=== PATIENT | male | born 1945 | race Caucasian/White ===

== ENCOUNTER 2021-08-13 13:59 | Outpatient (CLI) | payer MEDICARE, OTHER ==
[2021-08-13 15:14] VITALS: BP 130/78
--- NOTE | 2021-08-13 15:14 | SLEEP CARE CONSULTATION ---
Information from patient questionnaire entered by Lucy Reese MA. I have reviewed and concur with the information entered by Lucy Reese MA. This document represents the service I personally performed and the decisions made by , Rosa Young ARNP. History of Present Illness Service Date and Time: 08/13/2021 1359 Reason for Visit: New patient (ON CPAP, SEE OUTSIDE STUDY), Previously diagnosed sleep apnea, sleep apnea on CPAP therapy Chief Complaint: reports: Unrefreshed sleep, Excessive daytime sleepiness Date of Onset: SEVERAL MONTHS Usual bedtime: 930 100 PM Time it takes to fall asleep: 10 - 15 Snores at night: No Observed to quit breathing while asleep: No Sleeps alone due to snoring: No Number of times waking at night: 2-3 Reasons for waking at night: reports: Bathroom Toss, Turn, or Twitch while sleeping: No Recalls having dreams: Yes Usually gets out of bed at: 0414-3711 Feels refreshed in the morning: Yes Morning headache: No Sleepy or fatigued during the day: Yes Ever fallen asleep while driving: No Takes day naps: No Dreams during day naps: No Prior sleep studies: Yes Year and Where: 11/10/17 [facility] [place], [place] Type of Sleep Study: Polysomnography Additional HPI information: DOLORES ROSALES was previously diagnosed to have moderate, AHI 17.2, obstructive sleep apnea-hypopnea syndrome and comes in today to establish care for CPAP therapy. - Parasomnia Symptoms Ever been unable to move upon waking from sleep: No Walks in sleep: No Talks in sleep: No Ever acted out dreams in sleep: No Ever felt weak in the knees when startled or emotional: No Bothered by creepy, crawly, restless sensations in legs: No Problems with memory or concentration: Yes CPAP Compliance Data - Data Reviewed with Patient Average duration of nightly device use: 7 hours Compliance rate %: 100 (Compliant last 3 months per machine) Current pressure setting (cmH2O): 11 Average residual AHI: 10.9 Average large leak: 9.9 L Compliance data discussion: He has been getting his supplies from [facility]. He is using a full face mask. He changes the mask cushion every 3 months. Subjective Patient concerns: reports: dry mouth, nose, throat (dry mouth). denies: aerophagia, mask discomfort, air blowing in eyes, mask leak noise, condensation in mask/hose, nasal congestion, epistaxis, other Observed to snore while using device: No Current pressure setting perceived as: comfortable On therapy, patient: reports: sleeping better, awakening more refreshed, being more awake and alert during the day, more rested overall. denies: drowsiness while driving Initial [place] Sleepiness Scale score: 7 (07/2021) Past Medical History Past Medical History: reports: Hypertension, Diabetes, Anxiety Social History The patient's occupation is a RE. Patient is Unknown and lives in [place]. Have you smoked in the past 12 months: No Alcohol use: Yes Alcohol amount and frequency: 2-3 X WEEKLY Caffeine use: Yes Caffeine amount and frequency: 2-3 X DAILY Family History Family history of sleep disordered breathing: No Allergies and Home Medications Drug allergies reviewed: Yes (NKDA) Home medication list reviewed: Yes Allergy and home medication list: Medications Lisinopril 10 mg daily Metformin HCL 500 mg twice daily Jardiance 25 mg daily Bupropion HCL 300 mg daily Tamsulosin 0.4 mg dialy Zinc Turmeric Omeprazole B12 D3 Zyrtec 10 mg Nasal decongestant Review of Systems Weight gain over past 5 years: 2 lb Cardiovascular: reports: high blood pressure Psychiatric: reports: depression Immunologic: reports: allergies to food or environment (hayfever or pollen/dust) Physical Exam Vital signs obtained and entered by: Manuel REESE CMA AAKY Blood Pressure: 130/78 (RIGHT, PULSE 66, RESP 18, ) Heart Rate: 64 O2 Saturation: 97 Height: 5 ft 3 in Weight: 174 lb (W/O CLOTHES) Body Mass Index: 30.8 BMI Classification: Obese Neck circumference: 14.5 (INCHES) Heart: regular rate and rhythm Lungs: clear bilaterally Impression and Plan 1. Obstructive Sleep Apnea-Hypopnea Syndrome, moderate, with good treatment compliance and good apnea control. Patient states he comes in because he is having many times where he is falling asleep when he is sitting down during the day. He states he is not sure exactly how long this has been going on but when he spoke with his physician about it they encouraged him to have his CPAP checked for effective treatment. After reviewing his data, he does have an elevated AHI at 10.9. The patients pressure will be changed to CPAP 13 cmH20 for elevation of residual AHI. Patient advised to contact me if pressure change is uncomfortable so that it can be adjusted. Goals for apnea control discussed. Patient's apnea severity and rationale for treatment to reduce apnea, improve sleep quality and reduce cardiovascular and cerebrovascular events was reviewed. I also reviewed the benefit of consistent device use of CPAP for hypertension, diabetes and anxiety. * CPAP pressure to 13 cmH2O * Notify me if snoring with mask or feeling that the pressure is too much or too little * Attempt to lose weight * Call this office if any problems using CPAP * Return for follow up in 1-2 months, or sooner if concerns arise Counseling Topics: Spare mask, Weight loss health impact Visit Type: In Office Time Spent with Patient (minutes): 35 Provider Statement: I spent 100% of the Face to Face Visit with the patient with greater than 50% spent counseling the patient and coordination of care.
== END 2021-08-13 14:00 | disposition home or self-care (01) ==
LOC: SC 13:59
PROVIDERS: ATTEND Nurse Practitioner Family
DX: G47.33 Obstructive sleep apnea (adult) (pediatric) (principal); E66.9 Obesity, unspecified; Z68.30 Body mass index [BMI] 30.0-30.9, adult
CPT/HCPCS: 99203; G0463; 99212

== ENCOUNTER 2021-09-10 13:27 | Outpatient (CLI) | payer MEDICARE, OTHER ==
[2021-09-10 14:29] VITALS: BP 121/69
--- NOTE | 2021-09-10 14:29 | SLEEP CARE CONSULTATION ---
Information from patient questionnaire entered by Lucy Reese MA. I have reviewed and concur with the information entered by Lucy Reese MA. This document represents the service I personally performed and the decisions made by , Rosa Young ARNP. History of Present Illness Service Date and Time: 09/10/2021 1327 Previous diagnosis: Moderate, Obstructive Sleep Apnea-Hypopnea Syndrome AHI: 17.2 (in 2018) Reason for follow up: other (2 MONTH F/U, ) Equipment type: CPAP (Fiorella II) Equipment obtained from: Other ([facility]: getting supplies) Mask style: Full face Backup mask available: No (will keep old mask when replaced) Last cushion change: 1 month Prior sleep studies: Yes Type of Sleep Study: Polysomnography HPI additional information: DOLORES ROSALES was diagnosed to have moderate, AHI 17.2, obstructive sleep apnea-hypopnea syndrome and returned today for CPAP therapy two month follow-up after pressure change. CPAP Compliance Data - Data Reviewed with Patient Average duration of nightly device use: 7 hours 42 minutes Compliance rate %: 95 (60 days; 57/60 usage) Current pressure setting (cmH2O): 13 Average residual AHI: 10 Average large leak: 0 Subjective Patient concerns: denies: aerophagia, mask discomfort, air blowing in eyes, mask leak noise, condensation in mask/hose, nasal congestion, dry mouth, nose, throat, epistaxis, other Observed to snore while using device: No Current pressure setting perceived as: too low (possibly) On therapy, patient: reports: sleeping better, awakening more refreshed, being more awake and alert during the day, more rested overall, other (Still falling asleep on couch when watching TV). denies: drowsiness while driving Current [place] Sleepiness Scale score: 11 (08/2021) Allergies and Home Medications Home medication list reviewed: Yes (no changes) Review of Systems Review of systems same as previous: Yes (no changes) Physical Exam Vital signs obtained and entered by: JUANY Blood Pressure: 121/69 Cuff size: wrist (right) Heart Rate: 97 O2 Saturation: 96 Height: 5 ft 3 in Weight: 176 lb (with clothes) Weight change since last visit: 1 lb gain Body Mass Index: 31.1 BMI Classification: Obese Impression and Plan 1. Obstructive Sleep Apnea-Hypopnea Syndrome, moderate, with good treatment compliance and fair apnea control with elevated residual AHI. On CPAP therapy, the patient has better sleep quality and is more rested overall. He still feels the pressure is too low. The patients pressure will be changed to autoCPAP 13- 16 cmH20 for elevation of residual AHI. Patient advised to contact me if pressure change is uncomfortable so that it can be adjusted. Goals for apnea control discussed. Patient's apnea severity and rationale for treatment to reduce apnea, improve sleep quality and reduce cardiovascular and cerebrovascular events was reviewed. I also reviewed the benefit of consistent device use of CPAP for hypertension, diabetes and anxiety. * Change auto CPAP pressure to 13-16 cmH2O * Notify me if snoring with mask or feeling that the pressure is too much or too little * Attempt to lose weight * Call this office if any problems using CPAP * Return for follow up in 1-2 months, or sooner if concerns arise Counseling Topics: Spare mask, Weight loss health impact Visit Type: In Office Time Spent with Patient (minutes): 24 Provider Statement: I spent 100% of the Face to Face Visit with the patient with greater than 50% spent counseling the patient and coordination of care.
== END 2021-09-10 13:28 | disposition home or self-care (01) ==
LOC: SC 13:27
PROVIDERS: ATTEND Nurse Practitioner Family
DX: G47.33 Obstructive sleep apnea (adult) (pediatric) (principal); E66.9 Obesity, unspecified; Z68.31 Body mass index [BMI] 31.0-31.9, adult
CPT/HCPCS: 99213; G0463; 99212

== ENCOUNTER 2021-12-10 13:48 | Outpatient (CLI) | payer MEDICARE, OTHER ==
[2021-12-10 14:24] VITALS: BP 112/60
--- NOTE | 2021-12-10 14:24 | SLEEP CARE CONSULTATION ---
Information from patient questionnaire entered by Dafne Foss. I have reviewed and concur with the information entered by Dafne Foss. This document represents the service I personally performed and the decisions made by , Rosa Young ARNP. History of Present Illness Service Date and Time: 12/10/2021 1348 Previous diagnosis: Moderate, Obstructive Sleep Apnea-Hypopnea Syndrome AHI: 17.2 (in 2018) Reason for follow up: one month (F/U FIORELLA) Equipment type: CPAP (Fiorella II) Equipment obtained from: Other ([facility]: getting supplies) Mask style: Full face Backup mask available: Yes (other mask) Last cushion change: 1 month Prior sleep studies: Yes Year and Where: 11/10/17 [facility] [place], [place] Type of Sleep Study: Polysomnography HPI additional information: DOLORES ROSALES was diagnosed to have moderate, AHI 17.2, obstructive sleep apnea-hypopnea syndrome and returned today for CPAP therapy one month follow-up. Sleep Study - Results Type of Sleep Study: Polysomnography Prior sleep studies: Yes Year and Where: 11/10/17 [facility] [place], [place] CPAP Compliance Data - Data Reviewed with Patient Average duration of nightly device use: 7. 42 Compliance rate %: 97 (29/30 days used) Current pressure setting (cmH2O): 15-20 (P95-16.5) Average residual AHI: 7 Average large leak: 0 Subjective Patient concerns: reports: mask leak noise, condensation in mask/hose, other (lack of pressure has improved). denies: aerophagia, mask discomfort, air blowing in eyes, nasal congestion, dry mouth, nose, throat, epistaxis Observed to snore while using device: No Current pressure setting perceived as: comfortable On therapy, patient: reports: sleeping better, awakening more refreshed, being more awake and alert during the day, more rested overall. denies: drowsiness while driving Initial [place] Sleepiness Scale score: 7 (07/2021) Current [place] Sleepiness Scale score: 2 (12/10/21) Allergies and Home Medications Home medication list reviewed: Yes (no changes) Review of Systems Review of systems same as previous: Yes (no changes) Physical Exam Vital signs obtained and entered by: TAYLOR OSBORN Blood Pressure: 112/60 (LEFT ARM ) Cuff size: regular Heart Rate: 102 O2 Saturation: 97 Height: 5 ft 3 in Weight: 167 lb Body Mass Index: 29.5 BMI Classification: Overweight Impression and Plan 1. Obstructive Sleep Apnea-Hypopnea Syndrome, moderate, with good treatment compliance and fair apnea control with mildly elevated AHI. On CPAP therapy, the patient has better sleep quality and is more rested overall. Patient states he could feel the increase in pressure and it is comfortable. He still has some mild elevation of his AHI. The patients pressure will be changed to autoCPAP 17-18 cmH20 for elevation of residual AHI. Patient advised to contact me if pressure change is uncomfortable so that it can be adjusted. Goals for apnea control discussed. Patient could not find an order to put the filters that he received from his [employer] company. I showed him on the machine where the filter was and how to change it. He voiced understanding. Patient's apnea severity and rationale for treatment to reduce apnea, improve sleep quality and reduce cardiovascular and cerebrovascular events was reviewed. I also reviewed the benefit of consistent device use of CPAP for hypertension, diabetes and anxiety. * Change auto CPAP pressure to 17-18 cmH2O * Notify me if snoring with mask or feeling that the pressure is too much or too little * Attempt to lose weight * Call this office if any problems using CPAP * Return for follow up in 1-2 months, or sooner if concerns arise Counseling Topics: Spare mask, Weight loss health impact Visit Type: In Office Time Spent with Patient (minutes): 20 Provider Statement: I spent 100% of the Face to Face Visit with the patient with greater than 50% spent counseling the patient and coordination of care.
== END 2021-12-10 13:49 | disposition home or self-care (01) ==
LOC: SC 13:48
PROVIDERS: ATTEND Nurse Practitioner Family
DX: G47.33 Obstructive sleep apnea (adult) (pediatric) (principal); E66.3 Overweight; Z68.29 Body mass index [BMI] 29.0-29.9, adult
CPT/HCPCS: 99213; G0463; 99212

== ENCOUNTER 2022-01-07 12:53 | Outpatient (CLI) | payer MEDICARE, OTHER ==
--- NOTE | 2022-01-07 13:20 | SLEEP CARE CONSULTATION ---
Information from patient questionnaire entered by Tamiko Reeves MA. I have reviewed and concur with the information entered by Tamiko Reeves MA. This document represents the service I personally performed and the decisions made by , Rosa Young ARNP. History of Present Illness Service Date and Time: 01/07/2022 1253 Previous diagnosis: Moderate, Obstructive Sleep Apnea-Hypopnea Syndrome AHI: 17.2 (in 2018) Reason for follow up: other (1 month) Equipment type: CPAP (Fiorella II) Equipment obtained from: Other ([facility]: getting supplies) Mask style: Full face Backup mask available: Yes (old mask) Last cushion change: 3 days ago Prior sleep studies: Yes Year and Where: 11/10/17 [facility] [place], [place] Type of Sleep Study: Polysomnography HPI additional information: DOLORES ROSALES was diagnosed to have moderate, AHI 17.2, obstructive sleep apnea-hypopnea syndrome and returned today for CPAP therapy one month follow-up. Sleep Study - Results Type of Sleep Study: Polysomnography Prior sleep studies: Yes Year and Where: 11/10/17 [facility] [place], [place] CPAP Compliance Data - Data Reviewed with Patient Average duration of nightly device use: 7.12 hours Compliance rate %: 90 ( days used) Current pressure setting (cmH2O): 17-18 (avg 17.5) Average residual AHI: 3 Subjective Patient concerns: denies: aerophagia, mask discomfort, air blowing in eyes, mask leak noise, condensation in mask/hose, nasal congestion, dry mouth, nose, throat, epistaxis Observed to snore while using device: No Current pressure setting perceived as: comfortable On therapy, patient: reports: sleeping better, awakening more refreshed, being more awake and alert during the day, more rested overall. denies: drowsiness while driving Initial [place] Sleepiness Scale score: 7 (07/2021) Current [place] Sleepiness Scale score: 3 Allergies and Home Medications Drug allergies reviewed: Yes (NKDA) Home medication list reviewed: Yes (no changes) Review of Systems Review of systems same as previous: Yes (no changes) Physical Exam Vital signs obtained and entered by: KATE HERNANDEZ Blood Pressure: 98/62 Cuff size: regular Heart Rate: 94 O2 Saturation: 97 Height: 5 ft 3.5 in Weight: 184 lb 8 oz Body Mass Index: 32.1 BMI Classification: Obese Impression and Plan 1. Obstructive Sleep Apnea-Hypopnea Syndrome, moderate, with good treatment compliance and good apnea control. On CPAP therapy, the patient has better sleep quality and is more rested overall. Patient appears to be well controlled for his apnea current pressure 17-18 cm H2O. Patient has significant improvement of their sleep apnea and are satisfied with current CPAP therapy. Patient denies problems with oral dryness, nasal congestion, epistaxis, skin irritation or aerophagia. We will send his follow-up to an annual and update his supplies. Patient's apnea severity and rationale for treatment to reduce apnea, improve sleep quality and reduce cardiovascular and cerebrovascular events was reviewed. I also reviewed the benefit of consistent device use of CPAP for hypertension, diabetes and anxiety. 2. Obesity, unspecified. Currently patients BMI is 32.1. Obesity increases the risk of apnea, CPAP pressure requirements and overall health risks especially cardiovascular and diabetes. Thus patient is advised to lose weight. * Continue auto CPAP pressure at 17-18 cmH2O * Update supplies * Notify me if snoring with mask or feeling that the pressure is too much or too little * Attempt to lose weight * Call this office if any problems using CPAP * Return for follow up in 1 year, or sooner if concerns arise Counseling Topics: Spare mask, Weight loss health impact Visit Type: In Office Time Spent with Patient (minutes): 20 Provider Statement: I spent 100% of the Face to Face Visit with the patient with greater than 50% spent counseling the patient and coordination of care.
[2022-01-07 13:21] VITALS: BP 98/62
== END 2022-01-07 12:54 | disposition home or self-care (01) ==
LOC: SC 12:53
PROVIDERS: ATTEND Nurse Practitioner Family
DX: G47.33 Obstructive sleep apnea (adult) (pediatric) (principal); E66.9 Obesity, unspecified; Z68.32 Body mass index [BMI] 32.0-32.9, adult
CPT/HCPCS: 99213; G0463; 99212

== ENCOUNTER 2022-07-15 15:28 | Outpatient (CLI) | payer MEDICARE, OTHER ==
--- NOTE | 2022-07-15 16:07 | SLEEP CARE CONSULTATION ---
Information from patient questionnaire entered by Gypsy Benoit. I have reviewed and concur with the information entered by Gypsy Benoit. This document represents the service I personally performed and the decisions made by me, Rosa Young ARNP. History of Present Illness Service Date and Time: 07/15/2022 1528 Previous diagnosis: Moderate, Obstructive Sleep Apnea-Hypopnea Syndrome AHI: 17.2 (in 2018) Reason for follow up: six month (F/U MACHINE SHUTTING OFF) Equipment type: CPAP (Fiorella II) Equipment obtained from: Other ([facility]: getting supplies) Mask style: Full face Mask brand: Resmed (Airfit [id number]) Backup mask available: Yes (old mask) Last cushion change: 2 months Prior sleep studies: Yes Year and Where: 11/10/17 [facility] [place], [place] Type of Sleep Study: Polysomnography HPI additional information: DOLORES ROSALES was diagnosed to have moderate, AHI 17.2, obstructive sleep apnea-hypopnea syndrome and returned today for CPAP therapy six month follow-up. Sleep Study - Results Type of Sleep Study: Polysomnography Prior sleep studies: Yes Year and Where: 11/10/17 [facility] [place], [place] CPAP Compliance Data Compliance data discussion: He states his Fiorella II is shutting off intermittently during the night. It is not every night but it may be getting worse. We are unable to get a download of his therapy report. We contacted his DME and they need him to bring the SD card to their office. Subjective Patient concerns: reports: other (machine stopping working). denies: aerophagia, mask discomfort, air blowing in eyes, mask leak noise, condensation in mask/hose, nasal congestion, dry mouth, nose, throat, epistaxis Observed to snore while using device: No Current pressure setting perceived as: comfortable On therapy, patient: reports: sleeping better, awakening more refreshed, being more awake and alert during the day, more rested overall. denies: drowsiness while driving Initial [place] Sleepiness Scale score: 7 (07/2021) Current [place] Sleepiness Scale score: 5 (07/15/22) Allergies and Home Medications Known drug allergies: No Drug allergies reviewed: Yes Home medication list reviewed: Yes (no changes) Review of Systems Review of systems same as previous: Yes (no changes) Physical Exam Vital signs obtained and entered by: GYPSY Anderson MA Blood Pressure: 110/60 (LEFT ARM) Cuff size: regular Heart Rate: 105 O2 Saturation: 96 Height: 5 ft 3.5 in Weight: 171 lb 9.6 oz Body Mass Index: 29.9 BMI Classification: Overweight Impression and Plan 1. Obstructive Sleep Apnea-Hypopnea Syndrome, moderate, with unknown treatment compliance and unknown apnea control. On CPAP therapy, the patient has better sleep quality and is more rested overall. Patient comes in today because his machine is intermittently turning off during the night. When we tried to get a download of his information today, we were unable to get onto the website and unable to download his SD card. We called his [employer] company who states they also do not have any data and need him to bring in his SD card. He received his Fiorella II in 2020. It appears it is malfunctioning. I will have the machine serviced to see if it is fixable. If it is not repairable, we may need to get him a new device. He is willing to take his machine down to [facility]. We will follow up with him after he finds out about his machine. Patient's apnea severity and rationale for treatment to reduce apnea, improve sleep quality and reduce cardiovascular and cerebrovascular events was reviewed. I also reviewed the benefit of consistent device use of CPAP for hypertension, diabetes and anxiety. 2. Overweight, unspecified. Currently patients BMI is 29.9. Obesity increases the risk of apnea, CPAP pressure requirements and overall health risks especially cardiovascular and diabetes. Thus patient is advised to lose weight. * Continue auto CPAP pressure at 17-18 cmH2O * Service machine-intermittently shutting off, malfunctioning? * Notify me if snoring with mask or feeling that the pressure is too much or too little * Attempt to lose weight * Call this office if any problems using CPAP * Return for follow up determined by device, or sooner if concerns arise Counseling Topics: Spare mask, Weight loss health impact Visit Type: In Office Time Spent with Patient (minutes): 23 Provider Statement: I spent 100% of the Face to Face Visit with the patient with greater than 50% spent counseling the patient and coordination of care.
[2022-07-15 18:15] VITALS: BP 110/60
== END 2022-07-15 15:29 | disposition home or self-care (01) ==
LOC: SC 15:28
PROVIDERS: ATTEND Nurse Practitioner Family
DX: G47.33 Obstructive sleep apnea (adult) (pediatric) (principal); E66.3 Overweight; Z68.29 Body mass index [BMI] 29.0-29.9, adult
CPT/HCPCS: 99213; G0463; 99212

== ENCOUNTER 2023-01-07 11:04 | Outpatient (CLI) | payer MEDICARE, OTHER ==
--- NOTE | 2023-01-07 11:30 | Sleep Patient Instructions ---
Sleep Center Visit Summary - Patient Visit Information Reason for Visit: 6-month follow-up for PAP therapy - Patient Instructions Additional Instructions: You were here for follow up of CPAP therapy. You will be continued on CPAP therapy with pressure at 17-20 cmH2O. Please let us know if the pressure change is uncomfortable and we can make further adjustments of the pressure. You should follow up with sleep care in 12 months. You may contact us sooner for any questions or concerns. - Clinic Information Contact: [facility] [address] [place] [address] [email or web address] T: [phone]
--- NOTE | 2023-01-07 11:36 | SLEEP CARE CONSULTATION ---
Information from patient questionnaire entered by Gypsy Benoit. I have reviewed and concur with the information entered by Gypsy Benoit. This document represents the service I personally performed and the decisions made by me, Rosa Young ARNP. History of Present Illness Service Date and Time: 01/07/2023 1104 Previous diagnosis: Moderate, Obstructive Sleep Apnea-Hypopnea Syndrome AHI: 17.2 (in 2018) Reason for follow up: six month (F/U) Equipment type: CPAP (Fiorella II PT BRINGING MACHINE) Equipment obtained from: Other ([facility]: getting supplies) Mask style: Full face Backup mask available: Yes Last cushion change: 1 month Prior sleep studies: Yes Year and Where: 11/10/17 [facility] [place], [place] Type of Sleep Study: Polysomnography HPI additional information: DOLORES ROSALES was diagnosed to have moderate, AHI 17.2, obstructive sleep apnea-hypopnea syndrome and returned today for CPAP therapy six month follow-up. Sleep Study - Results Type of Sleep Study: Polysomnography Prior sleep studies: Yes Year and Where: 11/10/17 [facility] [place], [place] CPAP Compliance Data - Data Reviewed with Patient Average duration of nightly device use: 6:48 hours Compliance rate %: 97 (177/182 with 4 hrs or more use) Current pressure setting (cmH2O): 17-18 Average residual AHI: 3 Average large leak: 0 Subjective Patient concerns: reports: air blowing in eyes, mask leak noise, dry mouth, nose, throat (occasionally). denies: aerophagia, mask discomfort, condensation in mask/hose, nasal congestion, epistaxis Observed to snore while using device: No Current pressure setting perceived as: comfortable On therapy, patient: reports: sleeping better, awakening more refreshed, being more awake and alert during the day, more rested overall. denies: drowsiness w hile driving Initial [place] Sleepiness Scale score: 7 (07/2021) Current [place] Sleepiness Scale score: 4 Allergies and Home Medications Known drug allergies: No Drug allergies reviewed: Yes Home medication list reviewed: Yes (Terbafine) Allergy and home medication list: Allergies No Known Drug Allergies Allergy (Verified 01/06/23 08:59) Review of Systems Review of systems same as previous: No (toenail fungus) Physical Exam Vital signs obtained and entered by: ABIODUN Gilbert Blood Pressure: 118/69 Cuff size: wrist (right) Heart Rate: 86 O2 Saturation: 97 Height: 5 ft 3.5 in Weight: 172 lb Body Mass Index: 29.9 BMI Classification: Overweight Impression and Plan 1. Obstructive Sleep Apnea-Hypopnea Syndrome, moderate, with good treatment compliance and good apnea control. On CPAP therapy, the patient has better sleep quality and is more rested overall. He states his machine did not keep shutting off like it had at the last appointment and so he never did get it serviced. Patient has significant improvement of their sleep apnea and is satisfied with current CPAP therapy. Patient has been having some air leaking around the mask into his eyes with leak noises. I encouraged him to change his mask cushion more often to help reduce leaks. He gets occasional dry mouth but no other issu es. He feels he could use a little more pressure, his average AHI is at 3 with average pressure use of 17.5 cmH2O. I will adjust his pressure to 17-20 cm H2O for patient comfort. We will followup with him next year. Patient's apnea severity and rationale for treatment to reduce apnea, improve sleep quality and reduce cardiovascular and cerebrovascular events was reviewed. I also reviewed the benefit of consistent device use of CPAP for hypertension, diabetes and anxiety. 2. Overweight, unspecified. Currently patients BMI is 29.9. Obesity increases the risk of apnea, CPAP pressure requirements and overall health risks especially cardiovascular and diabetes. Thus patient is advised to lose weight. * Change auto CPAP pressure to 17-20 cmH2O * Notify me if snoring with mask or feeling that the pressure is too much or too little * Attempt to lose weight * Call this office if any problems using CPAP * Return for follow up in 1 year, or sooner if concerns arise Counseling Topics: Spare mask, Weight loss health impact Follow up with Sleep Care in: 1 year Visit Type: In Office Time Spent with Patient (minutes): 24 Provider Statement: I spent 100% of the Face to Face Visit with the patient with greater than 50% spent counseling the patient and coordination of care.
[2023-01-07 11:37] VITALS: BP 118/69; O2SAT 97
== END 2023-01-07 11:05 | disposition home or self-care (01) ==
LOC: SC 11:04
PROVIDERS: ATTEND Nurse Practitioner Family
DX: G47.33 Obstructive sleep apnea (adult) (pediatric) (principal)
CPT/HCPCS: 99213; G0463; 99212

== ENCOUNTER 2023-12-16 09:20 | Outpatient (CLI) | payer MEDICARE, OTHER ==
--- NOTE | 2023-12-16 09:57 | Sleep Patient Instructions ---
Sleep Center Visit Summary - Patient Visit Information Reason for Visit: 11-month follow-up - Patient Instructions Additional Instructions: You will continue with CPAP therapy with pressure set at 17-20 cmH2O. A supply prescription will be updated with your DME supplier. I have added a machine service/repair order for the low level noise your machine is making. We encourage you to continue to try to lose weight. Please follow up with the sleep care office in 1 year. - Clinic Information Contact: [facility] [address] [place] [address] [email or web address] T: [phone]
--- NOTE | 2023-12-16 12:21 | SLEEP CARE CONSULTATION ---
Information from patient questionnaire entered by Gypsy Benoit. I have reviewed and concur with the information entered by Gypsy Benoit. This document represents the service I personally performed and the decisions made by me, Rosa Young ARNP. History of Present Illness Service Date and Time: 12/16/2023 0920 Previous diagnosis: Moderate, Obstructive Sleep Apnea-Hypopnea Syndrome AHI: 17.2 (in 2018) Reason for follow up: other (11 MONTH F/U) Accompanied by: Spouse (Altagracia) Equipment type: CPAP (Fiorella II PT BRINGING MACHINE) Equipment obtained from: Other ([facility]: getting supplies) Mask style: Full face Backup mask available: No (will keep old mask when replaced) Last cushion change: over a month Prior sleep studies: Yes Year and Where: 11/10/17 [facility] [place], [place] Type of Sleep Study: Polysomnography HPI additional information: DOLORES ROSALES was diagnosed to have moderate, AHI 17.2, obstructive sleep apnea-hypopnea syndrome and returned today for CPAP therapy 11 month follow-up. Sleep Study - Results Type of Sleep Study: Polysomnography Prior sleep studies: Yes Year and Where: 11/10/17 [facility] [place], [place] CPAP Compliance Data - Data Reviewed with Patient Average duration of nightly device use: 5 hours Compliance rate %: 100 (for last 6 months) Current pressure setting (cmH2O): 17-20 Average residual AHI: 3.2 Average large leak: 24.1 L/min Subjective Patient concerns: reports: dry mouth, nose, throat (little dry mouth), other (LOW LEVEL NOISE AFTER USE). denies: aerophagia, mask discomfort, air blowing in eyes, mask leak noise, condensation in mask/hose, nasal congestion, epistaxis Observed to snore while using device: No Current pressure setting perceived as: comfortable On therapy, patient: reports: sleeping better, awakening more refreshed, being more awake and alert during the day, more rested overall. denies: drowsiness while driving Initial [place] Sleepiness Scale score: 7 (07/2021) Current [place] Sleepiness Scale score: 5 Allergies and Home Medications Known drug allergies: No Drug allergies reviewed: Yes Home medication list reviewed: Yes (no changes) Allergy and home medication list: Allergies No Known Drug Allergies Allergy (Verified 12/16/23 09:25) Review of Systems Review of systems same as previous: Yes (NO CHANGE) Physical Exam Vital signs obtained and entered by: GYPSY Anderson MA Blood Pressure: 123/69 (RIGHT ARM) Cuff size: regular Heart Rate: 89 O2 Saturation: 97 Height: 5 ft 3.5 in Weight: 178 lb Body Mass Index: 31.0 BMI Classification: Obese Impression and Plan 1. Obstructive Sleep Apnea-Hypopnea Syndrome, moderate, with good treatment compliance and good apnea control. On CPAP therapy, the patient has better sleep quality and is more rested overall. Patient states there is a low level noise coming from his machine when he turns it on. Recently the noise has woken his up who is also on a CPAP. I will write a repair/service order and send it to his DME. They should contact him to be able to check out his machine. He has significant improvement of his sleep apnea and satisfied with current CPAP therapy. He intends to use the CPAP long-term. Patient denies problems with nasal congestion, epistaxis, skin irritation or aerophagia. Patient's apnea severity and rationale for treatment to reduce apnea, improve sleep quality and reduce cardiovascular and cerebrovascular events was reviewed. I also reviewed the benefit of consistent device use of CPAP for hypertension, diabetes, anxiety. 2. Obesity, unspecified. Currently patients BMI is 31. Obesity increases the risk of apnea, CPAP pressure requirements and overall health risks especially cardiovascular and diabetes. Thus patient is advised to lose weight. * Continue auto CPAP pressure at 17-20 cmH2O * Service machine for low noise level when turned on * Update supply prescription * Notify me if snoring with mask or feeling that the pressure is too much or too little * Attempt to lose weight * Call this office if any problems using CPAP * Return for follow up in 12 months, or sooner if concerns arise Counseling Topics: Spare mask, Weight loss health impact Prescriptions: Device supplies (with machine service for noise) Follow up with Sleep Care in: 1 year Visit Type: In Office Time Spent with Patient (minutes): 22 Provider Statement: I spent 100% of the Face to Face Visit with the patient with greater than 50% spent counseling the patient and coordination of care.
[2023-12-16 12:29] VITALS: BP 123/69; O2SAT 97
== END 2023-12-16 09:21 | disposition home or self-care (01) ==
LOC: SC 09:20
PROVIDERS: ATTEND Nurse Practitioner Family
DX: G47.33 Obstructive sleep apnea (adult) (pediatric) (principal); E66.9 Obesity, unspecified; Z68.31 Body mass index [BMI] 31.0-31.9, adult
CPT/HCPCS: 99213; G0463; 99212